=== PATIENT | female | born 1955 | race Caucasian/White ===

== ENCOUNTER 2019-08-02 13:39 | Emergency (ER) | payer OTHER ==
[~2019-08-02] VITALS: Ht 172.7 cm; Wt 84.1 kg
[2019-08-02 14:33] LABS: PARTIAL THROMBOPLASTIN TIME 27 SECONDS (22-32)
[2019-08-02 14:34] LABS: ALANINE AMINOTRANSFERASE 24 U/L (12-78); ALBUMIN 3.9 G/DL (3.4-5.0); ALBUMIN/GLOBULIN RATIO 1.1 (1.1-1.5); ALKALINE PHOSPHATASE 90 IU/L (46-116); ANION GAP 10 (8-16); ASPARTATE AMINO TRANSFERASE 22 U/L (10-37); BILIRUBIN,TOTAL 0.3 MG/DL (0.1-1.0); BLOOD UREA NITROGEN 22 MG/DL (7-18); BUN/CREATININE RATIO 27.2 (6.6-38.0); CALCIUM 8.8 MG/DL (8.5-10.1); CHLORIDE 106 MMOL/L (99-107); CREATININE 0.81 MG/DL (0.40-0.90); GLUCOSE 116 MG/DL (70-104); SODIUM 141 MMOL/L (135-145); TOTAL CARBON DIOXIDE 25.3 MMOL/L (24-32); TOTAL PROTEIN 7.4 G/DL (6.4-8.2); eGFR 71 ML/MIN
[2019-08-02 14:38] LABS: BASOPHILS % (AUTO) 0.4 % (0-1); EOSINOPHILS % (AUTO) 0.6 % (0-6); HEMATOCRIT 39.7 % (35.0-45.0); HEMOGLOBIN 13.2 g/dl (12.0-16.0); LYMPHOCYTES % (AUTO) 13.5 % (21-51); MEAN CORPUSCULAR HEMOGLOBIN 31.7 PG (27.0-31.0); MEAN CORPUSCULAR HGB CONC 33.2 g/dL (33.0-36.5); MEAN CORPUSCULAR VOLUME 95.5 FL (78-98); MEAN PLATELET VOLUME 7.4 FL (7.4-10.4); MONOCYTES # (AUTO) 0.6 X10'3 (0-0.9); MONOCYTES % (AUTO) 7.5 % (2-12); NEUTROPHILS # (AUTO) 5.8 X10'3 (1.8-7.7); PLATELET COUNT 295 X10'3 (140-440); RED BLOOD COUNT 4.16 X10'6 (4.20-5.60); WHITE BLOOD COUNT 7.4 X10'3 (4.5-11.0)
[2019-08-02] MEDS ORDERED: normal saline 1000ML IV soln IVB ONE (16:15)
[2019-08-02] MEDS ORDERED: ondansetron/PF 4mg/2ml inj IV ONE (16:15)
[2019-08-02] MEDS ORDERED: ONDA4TAB6 PO (16:42)
== END 2019-08-02 17:39 | disposition home or self-care (01) ==
LOC: ER 13:41 → MERGE 13:41 → ER 17:39
DX: B34.9 Viral infection, unspecified (principal); R42 Dizziness and giddiness; E78.00 Pure hypercholesterolemia, unspecified; I10 Essential (primary) hypertension; E11.9 Type 2 diabetes mellitus without complications; Z90.49 Acquired absence of other specified parts of digestive tract
CPT/HCPCS: 36415; 70450; 71045; 80053; 84484; 85025; 85610; 85730; 93005; 96360; 99284; J7030

== ENCOUNTER 2021-11-05 11:18 | Outpatient (CLI) | payer MEDICARE, BC ==
[~2021-11-05 11:18] MED LIST: ONDA4TAB6 PO
[2021-11-05 12:11] LABS: HEMOGLOBIN A1C 5.9 % (4.5-6.2)
[2021-11-05 12:38] LABS: ALANINE AMINOTRANSFERASE 33 U/L (12-78); ALBUMIN/GLOBULIN RATIO 1.4 (1.1-1.5); ALKALINE PHOSPHATASE 91 IU/L (46-116); ANION GAP 12 (8-16); ASPARTATE AMINO TRANSFERASE 24 U/L (10-37); BILIRUBIN,TOTAL 0.3 MG/DL (0.1-1.0); BLOOD UREA NITROGEN 17 MG/DL (7-18); BUN/CREATININE RATIO 22.7 (6.6-38.0); CALCIUM 8.8 MG/DL (8.5-10.1); CHLORIDE 107 MMOL/L (99-107); CHOL/HDL RATIO 2.3 (0.00-4.99); CHOLESTEROL 178 MG/DL (0-200); CREATININE 0.75 MG/DL (0.40-0.90); GLUCOSE 94 MG/DL (70-104); HDL CHOLESTEROL 79 MG/DL (35-60); LDL CHOLESTEROL 80 MG/DL (50-100); POTASSIUM 4.1 MMOL/L (3.5-5.1); SODIUM 144 MMOL/L (135-145); TOTAL CARBON DIOXIDE 25.5 MMOL/L (24-32); TOTAL PROTEIN 6.9 G/DL (6.4-8.2); TRIGLYCERIDES 90 MG/DL (20-135); eGFR 78 ML/MIN
== END 2021-11-05 23:59 | disposition home or self-care (01) ==
LOC: LAB 11:18
PROVIDERS: ATTEND Internal Medicine
DX: E55.9 Vitamin D deficiency, unspecified (principal); R63.5 Abnormal weight gain; R53.83 Other fatigue; I10 Essential (primary) hypertension; E78.5 Hyperlipidemia, unspecified; R73.03 Prediabetes
CPT/HCPCS: 36415; 80053; 80061; 82306; 83036; 84439; 84443